=== PATIENT | male | born 1950 | race Caucasian/White ===

== ENCOUNTER 2016-06-06 14:14 | Inpatient (IN) | payer OTHER ==
[~2016-06-06] VITALS: Ht 167.6 cm; Wt 95.3 kg
[2016-06-10] MEDS ORDERED: AMLO5TAB2 PO (11:16)
[2016-06-10] MEDS ORDERED: FLINT2 CHEW (11:17)
[2016-06-10] MEDS ORDERED: SYMB80AE INH (12:46)
[2016-06-10] MEDS ORDERED: ALBU6.7H INH (12:46)
[2016-06-11] MEDS ORDERED: POVIDONE IODINE 5% (ANTISEPSIS KIT) 4 APPLICATIONS EACH NARE PRN (09:15)
[2016-06-11] MEDS ORDERED: LACTATED RINGER'S 1000 ML IV PRN (09:15)
[2016-06-11] MEDS ORDERED: SODIUM CHLORID 0.9% 500 ML IV PRN (09:15)
[2016-06-11] MEDS ORDERED: EXPAREL PERI-ARTICULAR INJECTION (TOTAL VOL. 60 ML) P-ARTICULR SCH ×2 (09:15)
[2016-06-11] MEDS ORDERED: POVIDONE IODINE 7.5% SCRUB 118 ML BOTTLE TOPICAL SCH (09:15)
[2016-06-11] MEDS ORDERED: METOPROLOL TARTRATE 25 MG TAB PO PRN (09:15)
[2016-06-11] MEDS ORDERED: CHLORHEXIDINE GLUCONATE 2 % 1 PACK (2 CLOTHS) TOPICAL PRN (09:15)
[2016-06-11] MEDS ORDERED: INSULIN HUMAN REGULAR 1,000 UNITS/10 ML VIAL SQ PRN (09:15)
[2016-06-11] MEDS ORDERED: SODIUM CHLORIDE 0.9% IV SCH (09:15)
[2016-06-11] MEDS ORDERED: TRANEXAMIC ACID IV SCH (09:15)
[2016-06-11] MEDS ORDERED: VANCOMYCIN 1000 MG/NS 250 ML (for <70 kg) IV SCH ×2 (09:15)
[2016-06-11 09:16] VITALS: BP 137/85; PULSE 89; RESP 20; TEMP 98; O2SAT 93
[2016-06-11 10:34] LABS: BACTERIA, URINE RARE /hpf; BLOOD, URINE MOD (NEG); GLUCOSE,URINE NEG (NEG); KETONE, URINE NEG (NEG); MUCUS URINE FEW /lpf (OCC); NITRITE,URINE NEG (NEG); PH, URINE 5.5 (5.0-8.5); SQUAMOUS EPITHELIAL CELL URINE 1 /hpf (0-5); URINE COLOR YELLOW (YELLW/STRAW)
[2016-06-11 10:35] LABS: COMMENT (UR) CATH-CULTURE IND; CULTURE IF INDICATED CATH CULTURE IND
[2016-06-11] MEDS ORDERED: RESP: ALBUTEROL 2.5 MG/IPRATROPIUM 0.5 MG NEB (PRN) ONE (10:53)
[2016-06-11] MEDS ORDERED: MIDAZOLAM HCL 2 MG/2 ML VIAL ONE (11:17)
[2016-06-11] MEDS ORDERED: FAMOTIDINE 20 MG/2 ML VIAL ONE (11:17)
[2016-06-11] MEDS ORDERED: ceFAZolin INJ 1,000 MG VIAL ONE (11:20)
[2016-06-11] MEDS ORDERED: ceFAZolin 2 GM PREMIX 50 ML IV SCH (11:30)
[2016-06-11] MEDS ORDERED: GENTAMICIN SULFATE 80 MG/2 ML VIAL IRRIGATION ONE (13:15)
[2016-06-11] MEDS ORDERED: PROPOFOL 200 MG/20 ML AMP IV ONE (14:39)
[2016-06-11] MEDS ORDERED: LACTATED RINGER'S 1000 ML INJ 1,000 ML IV ONE (14:40)
[2016-06-11] MEDS ORDERED: ONDANSETRON HCL 4 MG/2 ML VIAL IV PUSH ONE (14:40)
[2016-06-11] MEDS ORDERED: ALBUTEROL SULFATE 90 MCG/ACT HFA 18 GM INHALER INH PRN (14:45)
[2016-06-11] MEDS ORDERED: MISCELLANEOUS PHARMACY INFORMATION XX ONE (14:45)
[2016-06-11] MEDS ORDERED: TEMAZEPAM 15 MG CAP PO PRN (14:45)
[2016-06-11] MEDS ORDERED: ONDANSETRON HCL 4 MG/2 ML VIAL IVP PRN (14:45)
[2016-06-11] MEDS ORDERED: SODIUM CHLORIDE 0.9% FLUSH 5 ML FLUSH IVF PRN (14:45)
[2016-06-11] MEDS ORDERED: MORPHINE SULFATE 8 MG/ML INJ IM PRN (14:45)
[2016-06-11] MEDS ORDERED: ACETAMINOPHEN/HYDROcodone 325 MG/7.5 MG TAB PO PRN (14:45)
[2016-06-11] MEDS ORDERED: MISCELLANEOUS NURSING INFORMATION XX PRN (14:45)
[2016-06-11] MEDS ORDERED: ALUMINUM/MAGNESIUM/SIMETH 30 ML CUP PO PRN (14:45)
--- NOTE | 2016-06-11 14:45 | PD.OP ---
cc: Steve Peguero MD Operative Report Date of Surgery: Jun 11, 2016 Preoperative Diagnosis: Osteoarthritis left hip, severe Postoperative Diagnosis: Same Procedure: Left total hip replacement arthroplasty, posterior exposure Anesthesia: Gen. Surgeon: Steve Peguero Territory Supervisor(s): LAMONT Lockhart Operation and Findings: EBL: 350 cc INDICATION: Patient is a 65-year-old male with severe osteoarthritis of the left hip. There is findings that may be consistent with avascular necrosis. We had planned an elective anterior exposure today but the patient developed a significant rash in the groin suspicious for a fungal infection. He was felt to be a candidate to change to posterior exposure because of concern of infection. He has consented and we will agreed to proceed forward with posterior total hip on the left. NOTE: Cary Lockhart PA-C was present for the entire surgical procedure as my certified surgical tech/first assistant. In my medical opinion her skill and care was necessary for the proper management of this patient. COMPONENTS: COMPANY: [employer] CUP: [place], 56 mm, 100 series STEM: Size 7, high offset, Whitley pressfit HEAD: 36, +5 mm, metal 12/14 taper ALTRX: 36, neutral PROCEDURE: This patient was brought to the operating room and anesthetized in the supine position and positioned on the routine table in the clean air suite. The patient was then rolled to a left side up lateral position and held with a Biomet hip positioner. The hip and leg was scrubbed with alcohol followed by Hibiclens followed by chloro prep and draped sterilely. Fluoroscopy was used during the case for cup and stem positioning also to black belt leg length and offset. A timeout was done and antibiotics were given within a routine time window. A 4 inch incision was made starting along the posterior one third of the greater trochanter. The iliotibial band was opened in line with the incision. The Charnley retractors were positioned. The posterior capsule and external rotators were taken down together in a sleeve. The neck was cut at the right location. The head was removed from the wound. The acetabulum was inspected. Deep retractors were positioned. The acetabulum was deepened down to the floor and started with a proper size reamer and reaming up to 55 mm. This was trialed with the same size trial. The overall fit was satisfactory. The rim was touched with the next size reamer. The cup was placed in approximately 40 of abduction and 30 of forward flexion. The final liner was positioned. Retractors were positioned allowing good visualization of the proximal femur. A box osteotome was utilized followed by a taper pin reamer followed by progressive broaching for the Whitley stem. This was reamed and broached and eventually advanced to a size 7 stem. A trial reduction showed satisfactory stability. Offset was satisfactory. Leg length was reestablished. At 90 of flexion it was stable to 50 of internal rotation. The hip could not be subluxed anteriorly. The final stem was inserted in approximately 15 of anteversion. The final head was impacted. The hip was reduced and stability, offset and leg length was as previously noted. The posterior capsule and external rotators were repaired through bone with interrupted #2 Tycron sutures. The piriformis muscle was repaired with the same. The iliotibial band with interrupted #1 Vicryl sutures. Subcutaneous tissue was approximated with 2-0 Vicryl suture and skin with running intradermal 3-0 Vicryl followed by Steri-Strips and benzoin. A sterile dressing was applied.. The sponge count needle counts and instrument counts were all correct. The patient was awakened and taken to the recovery room in satisfactory condition FINDINGS: There was severe osteoarthritis of the left hip. We needed to position the cup more medial than where the acetabulum had migrated to. We placed the cup slightly higher than normal. The final reconstruction allowed us to lengthen left leg by approximately 8-9 mm. Steve Peguero MD Jun 11, 2016 14:45
[2016-06-11] MEDS ORDERED: XARE10TA PO (14:48)
[2016-06-11] MEDS ORDERED: HYDR-3580 PO (14:48)
[2016-06-11] MEDS ORDERED: Post-op Orders (for Pharmacy) MISC XX ONE (14:55)
[2016-06-11] MEDS ORDERED: MORPHINE SULFATE 4 MG/ML INJ ONE (15:08)
[2016-06-11] MEDS ORDERED: fentaNYL CITRATE 250 MCG/5 ML AMP ONE (15:08)
[2016-06-11] MEDS ORDERED: MORPHINE SULFATE 30 MG/30 ML PCA ONE (15:25)
[2016-06-11] MEDS ORDERED: NALOXONE HCL 0.4 MG/ML AMP IV PRN (15:30)
[2016-06-11] MEDS ORDERED: diphenhydrAMINE HCL 50 MG/ML VIAL IV PUSH PRN (15:30)
[2016-06-11] MEDS ORDERED: diphenhydrAMINE HCL 25 MG CAP PO PRN (15:30)
[2016-06-11] MEDS: LACTATED RINGER'S 1000 ML INJ 1,000 ML IV SCH (15:31)
[2016-06-11] MEDS: MORPHINE SULFATE 30 MG/30 ML PCA IV SCH (15:31)
[2016-06-11] MEDS ORDERED: *RESP: ALBUTEROL 2.5 MG/3 ML NEB (PRN) PERIprocedural Use ONLY NEB ONE (15:45)
[2016-06-11] MEDS ORDERED: *ONDANSETRON 4 MG VIAL PERIprocedural Use ONLY ONE (16:05)
[2016-06-11] MEDS ORDERED: *morphine SULFATE 8 MG/ML PERIprocedure ONLY ONE (16:13)
--- NOTE | 2016-06-11 16:21 | RADRPT ---
EXAM DATE/TIME: 06/11/2016 15:14 [facility] COMPARISON: HIP LEFT (AP & LAT), December 24, 2010, 23:17. INDICATIONS : Post op left hip replacement. MEDICAL HISTORY : Hypertension. Chronic obstructive pulmonary disease. Smoker. SURGICAL HISTORY : Total hip replacement. ENCOUNTER: Initial ACUITY: 1 day PAIN SCORE: Non-responsive. LOCATION: Left hip. FINDINGS: AP and lateral views of the left hip joint fine recent total hip arthroplasty demonstrates acetabular and proximal femur hardware in place. There is adjacent soft tissue air. No unexpected finding is id entified. CONCLUSION: Expected findings following recent left total hip arthroplasty. Mane Gonzalez MD on June 11, 2016 at 16:14 Board Certified Radiologist. This report was verified electronically.
[2016-06-11] MEDS: MAGNESIUM HYDROXIDE SUSP 30 ML CUP PO SCH (21:00)
[2016-06-11] MEDS: SODIUM CHLORIDE 0.9% FLUSH 5 ML FLUSH IVF SCH (21:00)
[2016-06-11] MEDS: SENNOSIDES 8.6 MG TAB PO SCH (21:00)
[2016-06-11] MEDS: BUDESONIDE-FORMOTEROL 80/4.5 MCG INHALER INH SCH (21:00)
[2016-06-11] MEDS ORDERED: PCA - TOTAL MG MORPHINE DELIVERED PER SHIFT SCH (22:00)
[2016-06-11 23:50] VITALS: BP 124/81; PULSE 96; RESP 18; TEMP 97.2; O2SAT 92
[2016-06-12 04:00] VITALS: BP 143/83; PULSE 98; RESP 17; TEMP 98.1; O2SAT 94
[2016-06-12 07:07] LABS: HEMATOCRIT 38.4 % (39.0-51.0); REVIEW FLAG FINAL
[2016-06-12 08:00] VITALS: BP 121/71; PULSE 99; RESP 18; TEMP 98.1; O2SAT 91
[2016-06-12] MEDS: MORPHINE SULFATE 30 MG/30 ML PCA IV SCH (08:25)
[2016-06-12] MEDS: MAGNESIUM HYDROXIDE SUSP 30 ML CUP PO SCH ×2 (09:38→20:56)
[2016-06-12] MEDS: SODIUM CHLORIDE 0.9% FLUSH 5 ML FLUSH IVF SCH ×2 (09:38→20:56)
[2016-06-12] MEDS: amLODIPine BESYLATE 5 MG TAB PO SCH (09:38)
[2016-06-12] MEDS: BUDESONIDE-FORMOTEROL 80/4.5 MCG INHALER INH SCH ×2 (09:39→20:57)
--- NOTE | 2016-06-12 10:25 | HHI.FF ---
Face to Face Verification Diagnosis: (1) Left hip pain (2) Osteoarthritis of left hip (3) Avascular necrosis of bone of left hip Physical Therapy Gait training, Safety evaluation Hip: Total hip, Protocol: Left, Abduction pillow while in bed, Progress to weight bearing Left LE Weight Bearing: WB as tolerated Additional Instructions PT 4-5 days/wk. WBAT Left LE. Posterior DOREEN protocol. Abd pillow when in bed. Walker as needed for gait training. Nursing RN Days per Week: 3 x Week(s): 1 Dressing Changes: Do not change dressing Additional Instructions Vitals assessment, dressing assessment - do not change unless saturated or erythema. I have seen patient Emmanuel Leong on 06/12/16. My clinical findings support the need for the requested home health care services because: Limited ability to care for self High risk of falls I certify that my clinical findings support that this patient is homebound because: Post-op weakness Unsteady gait/balance Maritza Iglesias Jun 12, 2016 10:25
[2016-06-12] MEDS ORDERED: WALKER WHEELS/F1 MIS (10:28)
[2016-06-12] MEDS ORDERED: MISC-163 (10:29)
[2016-06-12 12:00] VITALS: BP 105/62; PULSE 100; RESP 18; TEMP 98.7; O2SAT 91
--- NOTE | 2016-06-12 13:10 | PD.ORT.PN ---
Subjective Subjective Remarks Moderate left hip pain, some thigh aching. No new radiating leg pain. Appetite ok. No new CP or SOB. Many questions about surgery and pathology. Objective Vitals Vital Signs Date Time Temp Pulse Resp B/P Pulse Ox O2 Delivery O2 Flow Rate FiO2 06/12/16 09:41 16 06/12/16 08:25 16 06/12/16 08:00 98.1 99 18 121/71 91 06/12/16 04:00 98.1 98 17 143/83 94 06/12/16 03:29 17 06/11/16 23:50 97.2 96 18 124/81 92 06/11/16 23:30 98.0 95 15 133/74 94 Nasal Cannula 3 06/11/16 20:00 97.7 88 15 128/72 92 Nasal Cannula 3 06/11/16 19:00 90 12 130/75 92 Nasal Cannula 3 06/11/16 18:00 90 14 115/66 93 Nasal Cannula 3 06/11/16 17:00 92 15 166/83 96 Nasal Cannula 3 06/11/16 16:00 82 18 160/84 92 Nasal Cannula 4 06/11/16 15:45 83 18 149/82 92 Nasal Cannula 4 06/11/16 15:31 16 06/11/16 15:30 87 16 159/88 92 Nasal Cannula 4 06/11/16 15:15 87 17 167/95 98 Nasal Cannula 4 06/11/16 15:02 97.9 91 17 170/98 91 Nasal Cannula 4 I/O 06/11/16 06/11/16 06/11/16 06/12/16 06/12/16 06/12/16 07:00 15:00 23:00 07:00 15:00 23:00 Intake Total 2334 ml 998 ml Output Total 850 ml 200 ml Balance 1484 ml 798 ml Intake Oral 240 ml 150 ml IV Total 344 ml 848 ml Other 1750 ml Output Urine Total 500 ml 200 ml Estimated Blood Loss 350 ml Result Diagram: 06/12/16 0604 Objective Remarks Sitting up in chair, NAD VSS LLE Posterior hip dressing c/d/i, no erythema, mild swelling thigh and calf supple, neg homans +motor at, +sens, +nvi Assessment & Plan Ortho Post Op Day #: 1 Problem List: Assessment and Plan pod#1 s/p L DOREEN, posterior approach D/C [employer] - change to po pain meds Xarelto 10mg qd PT - WBAT LLE. Posterior DOREEN. Abd pillow when in bed. Hold dressing changes unless saturated. D/C planning, likely [facility] tomorrow. DME written. Maritza Iglesias Jun 12, 2016 13:10
[2016-06-12] MEDS: RIVAROXABAN 10 MG TAB PO SCH (13:18)
[2016-06-12] MEDS: ACETAMINOPHEN/HYDROcodone 325 MG/7.5 MG TAB PO PRN ×3 (15:13→23:19)
[2016-06-12] MEDS: LACTATED RINGER'S 1000 ML INJ 1,000 ML IV SCH ×2 (15:37→16:13)
[2016-06-12 15:58] VITALS: BP 122/77; PULSE 103; RESP 16; TEMP 97.3; O2SAT 91
[2016-06-12 20:20] VITALS: BP 120/71; PULSE 95; RESP 17; TEMP 98.9; O2SAT 95
[2016-06-12] MEDS: SENNOSIDES 8.6 MG TAB PO SCH (20:54)
[2016-06-13] VITALS: BP 129/76; PULSE 106; RESP 18; TEMP 97.8; O2SAT 92
[2016-06-13] MEDS: ACETAMINOPHEN/HYDROcodone 325 MG/7.5 MG TAB PO PRN ×3 (03:38→12:35)
[2016-06-13 04:00] VITALS: BP 142/78; PULSE 99; RESP 18; TEMP 97.4; O2SAT 92
[2016-06-13] MEDS: LACTATED RINGER'S 1000 ML INJ 1,000 ML IV SCH (04:07)
[2016-06-13 08:00] VITALS: BP 119/77; PULSE 96; RESP 18; TEMP 99.1; O2SAT 93
[2016-06-13] MEDS: amLODIPine BESYLATE 5 MG TAB PO SCH (08:54)
[2016-06-13] MEDS: BUDESONIDE-FORMOTEROL 80/4.5 MCG INHALER INH SCH (08:55)
[2016-06-13] MEDS: SODIUM CHLORIDE 0.9% FLUSH 5 ML FLUSH IVF SCH (09:00)
[2016-06-13] MEDS: MAGNESIUM HYDROXIDE SUSP 30 ML CUP PO SCH (09:00)
--- NOTE | 2016-06-13 09:50 | HHI.DCPOC ---
Discharge Care Plan Diagnosis: (1) Left hip pain (2) Osteoarthritis of left hip (3) Avascular necrosis of bone of left hip Your Health Problems Are: Incision/Drains Swelling Goals to Promote Your Health * To prevent worsening of your condition and complications * To maintain your health at the optimal level Directions to Meet Your Goals Take your medications as prescribed Follow your dietary instruction Follow activity as directed Keep your appointments as scheduled Take your immunizations and boosters as scheduled If your symptoms worsen call your PCP, if no PCP go to Urgent Care Center or Emergency Room Smoking is Dangerous to Your Health. Avoid second hand smoke Call the 24-hour hour crisis hotline for domestic abuse at Maritza Iglesias Jun 13, 2016 09:50
--- NOTE | 2016-06-13 09:51 | HHI.DS ---
Discharge Summary Admission Date Jun 11, 2016 at 08:24 Discharge Date: Jun 13, 2016 Admitting Diagnosis see below Diagnosis: (1) Left hip pain Diagnosis: Principal (2) Osteoarthritis of left hip Diagnosis: Principal (3) Avascular necrosis of bone of left hip Diagnosis: Principal Procedures Left total hip arthroplasty, posterior Brief History This is a 65 year old male patient with a 6-7 year history of left hip and groin pain. He presented to his PCP years ago for treatment. Imaging studies showed arthritis. He was placed on a NSAID medication but this had to be changed multiple times due to problems with gastritis. His function continued to decline as his pain advanced. Recent imaging showed arthritis but also advanced AVN of the hip. He began to require a cane to ambulate. Surgical treatment was eventually recommended and he elected to move forward. He presents for the above procedure. CBC/BMP: 06/12/16 0604 Significant Findings Laboratory Tests Test 06/11/16 06/12/16 10:05 06:04 Urine Occult Blood MOD (NEG) Urine RBC 9 /hpf (0-3) Urine Bacteria RARE /hpf (NONE) Urine Mucus FEW /lpf (OCC) Hemoglobin 12.7 GM/DL (13.0-17.0) Hematocrit 38.4 % (39.0-51.0) PE at Discharge Sitting up in chair, NAD VSS LLE Posterior hip dressing c/d/i, no erythema, mild swelling thigh and calf supple, neg homans +motor at, +sens, +nvi Hospital Course Surgical treatment was performed on the day of admission without complication. He recovered well in PACU and was transferred to the orthopaedic floor. Pain was controlled with IV and oral medications. DVT prophylaxis was initiated postoperative day 1. He was compliant with physical therapy and all posterior total hip precautions. After 2 days he was found to be stable and discharged home with home health care. At that time he was instructed to continue therapy and pursue a high fiber diet. Pt Condition on Discharge: Stable Discharge Disposition: Disch w/ Home Health Serv Discharge Instructions Diet Instructions: As Tolerated, No Restrictions, High Fiber Diet Activities You Can Perform: Weight Bearing as Sheyla Activities to Avoid: Strenuous Activity Additional Activity Instruc.: posterior carolyne precautions New Medications: 3-in-1 Bedside Toilet (3-in-1 Bedside Toilet) 1 Mis Mis 1 EA .ROUTE DIRECTED #1 EA Walker with Front Wheels (Walker with Front Wheels) 1 Mis Mis 1 EA .ROUTE DIRECTED #1 Ref 0 EA Hydrocodone-Acetaminophen (Hydrocodone-Acetaminophen) 7.5-325 mg Tab 1 TAB PO Q4H PRN PAIN LESS THAN 5 ON SCALE #50 TAB Rivaroxaban (Xarelto) 10 Mg Tab 10 MG PO Q24H Prevent Blood Clot #25 TAB Continued Medications: Albuterol 6.7 GM Inh (Proventil Hfa 6.7 GM Inh) 90 Mcg/Act Aer 2 PUFF INH Q4-6H PRN SHORTNESS OF BREATH #1 Ref 0 INHALER Amlodipine (Amlodipine) 5 Mg Tab 5 MG PO DAILY Blood Pressure Management #30 Ref 0 TAB Budesonide-Formoterol Inh (Symbicort Inh) 80-4.5 Mcg/Act Aero 2 PUFF INH Q12HR Asthma Management #1 Ref 0 INHALER Vzfx-Gguzbkdo-Icgtenew (Flintstones Complete) 60 Mg Tab 1 TAB CHEW DAILY Nutritional Supplement #30 Ref 0 TAB Maritza Iglesias Jun 13, 2016 09:51
[2016-06-13] MEDS: RIVAROXABAN 10 MG TAB PO SCH (12:34)
== END 2016-06-13 13:27 | disposition home health service (06) | DRG 470 ==
LOC: HSDI 06-11 08:24 → N06A 06-11 23:54
PROVIDERS: ADMIT Orthopaedic Surgery Orthopaedic Surgery of the Spine; ATTEND Orthopaedic Surgery Orthopaedic Surgery of the Spine
PROC: 0SRB03A Replacement of Left Hip Joint with Ceramic Synthetic Substitute, Uncemented, Open Approach (ICD-10-PCS; principal; 2016-06-11 12:00)
DX: M16.12 Unilateral primary osteoarthritis, left hip (principal); M87.852 Other osteonecrosis, left femur
CPT/HCPCS: 73502; 76000; 81001; 85014; 85018; 86850; 86900; 86901; 86920; 87086; 94150; 94640; 94664; C1776; C9290; J0690; J1580; J2250; J2270; J2405; J3010; J3370; J7050; J7120; J7613

== ENCOUNTER 2017-07-02 09:35 | Emergency (ER) | payer OTHER ==
[~2017-07-02] VITALS: Ht 167.6 cm; Wt 90.9 kg
[~2017-07-02 09:35] MED LIST: ALBU6.7H INH; AMLO5TAB2 PO; FLINT2 CHEW; HYDR-3580 PO; MISC-163; SYMB80AE INH; WALKER WHEELS/F1 MIS; XARE10TA PO
[2017-07-02 09:57] VITALS: BP 189/109; PULSE 74; RESP 20; TEMP 97.8; O2SAT 97
[2017-07-02] MEDS ORDERED: VARE.5 PO (10:07)
--- NOTE | 2017-07-02 10:35 | PD ---
HPI Chief Complaint: Back/ Neck Pain or Injury Time Seen by Provider: 10:06 Travel History International Travel<30 days: No Contact w/Intl Traveler<30days: No Traveled to known affect area: No History of Present Illness HPI 66-year-old male with PMH of HTN, avascular necrosis of the left hip s/p left hip arthroplasty by Dr. Steve Lyn presents to the ED for evaluation of left hip and leg pain. 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 He reports feeling a pop in the area. Pain is constant, shooting, radiates into the left groin and down the left leg to the toes. The patient denies numbness, tingling, weakness, limitations range of motion of the extremity, saddle anesthesia or incontinence. He denies abdominal pain, nausea, vomiting, changes in bowel habits, dysuria. He treated at home with a single dose of ibuprofen with no improvement of his symptoms. PFSH Past Medical History Arthritis: Yes Cancer: No Cardiovascular Problems: No COPD: Yes Diabetes: No Endocrine: No Genitourinary: No Hepatitis: No Hiatal Hernia: No Hypertension: Yes Immune Disorder: No Musculoskeletal: Yes (OA) Neurologic: No Psychiatric: No Reproductive: No Respiratory: Yes (COPD) Thyroid Disease: No Past Surgical History Abdominal Surgery: Yes (KIDNEY SURGERY A CHILD) AICD: No Cardiac Surgery: No Ear Surgery: No Endocrine Surgery: No Eye Surgery: No Genitourinary Surgery: Yes (TEXTICLE GROWTH REMOVED) Joint Replacement: No Oral Surgery: No Pacemaker: No Thoracic Surgery: No Other Surgery: Yes (TOENAIL REMOVED IN OR) Social History Alcohol Use: Yes (SOCIALLY) Tobacco Use: Yes (1 PPD) Substance Use: Yes (MARIJUANA OCC) Allergies-Medications (Allergen,Severity, Reaction): Coded Allergies: penicillin G (Verified Allergy, Mild, SWELLING, 07/02/17) Reported Meds & Prescriptions Reported Meds & Active Scripts Active Flexeril (Cyclobenzaprine HCl) 10 Mg Tab 10 Mg PO TID Ibuprofen 600 Mg Tab 600 Mg PO Q8H PRN Reported Chantix (Varenicline) 0.5 Mg Tab 0.5 Mg PO DAILY Days 1-3 Proventil Hfa 6.7 GM Inh (Albuterol Sulfate) 90 Mcg/Act Aer 2 Puff INH Q4-6H PRN Symbicort Inh (Budesonide/Formoterol Fumarate) 80-4.5 Mcg/Act Aero 2 Puff INH Q12HR Amlodipine (Amlodipine Besylate) 5 Mg Tab 5 Mg PO DAILY Review of Systems Except as stated in HPI: all other systems reviewed are Neg Physical Exam Narrative GENERAL: Well-nourished, well-developed white male no acute distress. SKIN: Focused skin assessment warm/dry. HEAD: Normocephalic. EYES: No scleral icterus. No injection or drainage. NECK: Supple, trachea midline. No JVD or lymphadenopathy. CARDIOVASCULAR: Regular rate and rhythm without murmurs, gallops, or rubs. RESPIRATORY: Breath sounds clear and equal bilaterally. No accessory muscle use. GASTROINTESTINAL: Abdomen soft, non-tender, nondistended. No masses or bulges. Active bowel sounds. MUSCULOSKELETAL: No cyanosis, or edema. FOCUSED LEFT LOWER EXTREMITY EXAM: 2+ DP pulse. Tender to palpation in the left anterior lateral groin and hip. No pain elicited with internal and external rotation. No foreshortening noted. 5/5 strength of dorsiflexion, plantarflexion, knee and hip flexion. Noted to walk with a slight limp. Neurovascularly intact distally. BACK: No obvious deformity. No CVA tenderness. No midline tenderness. No tenderness to palpation of the paraspinal musculature. Data Data Last Documented VS Vital Signs Date Time Temp Pulse Resp B/P (MAP) Pulse Ox O2 Delivery O2 Flow Rate FiO2 07/02/17 12:50 78 20 142/87 (105) 99 07/02/17 09:57 97.8 Orders Orders Hip, Uni(Ap&Lat) W Ap Pelvis (07/02/17 10:31) Ketorolac Inj (Toradol Inj) (07/02/17 10:45) Orphenadrine Inj (Norflex Inj) (07/02/17 10:45) Acetamin-Hydrocod 325-5 Mg (Knifley 5-325 (07/02/17 10:45) Ed Discharge Order (07/02/17 12:28) MDM Medical Decision Making Medical Screen Exam Complete: Yes Emergency Medical Condition: Yes Differential Diagnosis Musculoskeletal pain versus ligamentous injury versus dislocation versus fracture versus other Narrative Course 66-year-old male with PMH of HTN, avascular necrosis of the left hip s/p left hip arthroplasty by Dr. Steve Lyn presents to the ED for evaluation of left hip and leg pain. 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 He reports feeling a pop in the area. No red flag symptoms reported. Vitals reviewed. Musculature of the back. Patient has intact strength in the lower extremities. Patient was administered IM Toradol and Norflex and p.o. Knifley. X-ray reveals intact hardware with no definitive evidence of failure or complication by plain film. Position of the hardware appears stable compared to previous of 06/11/16. On recheck patient reports improvement without resolution of his pain. He is provided a short course of anti-inflammatories and muscle relaxants. He is instructed to follow-up with Dr. Lyn this week. He is stable and discharged home. Diagnosis Primary Impression: Left hip pain Referrals: Steve Peguero MD Additional Instructions: Rest, hydrate. Return to normal, gentle activity as tolerated. Brief periods of rest a few times a day. Take anti-inflammatories and muscle relaxants as prescribed. Do not drive while taking muscle relaxants as they may cause drowsiness. Follow-up with Dr. Lyn this week. Return to the ED for worsening symptoms or any urgent or emergent medical condition. Med/Other Pt SpecificInfo: Prescription(s) given Scripts Cyclobenzaprine (Flexeril) 10 Mg Tab 10 MG PO TID for Muscle Spasm, #12 TAB 0 Refills Prov: Noé Roman MD 07/02/17 Ibuprofen (Ibuprofen) 600 Mg Tab 600 MG PO Q8H Y for PAIN, #12 TAB 0 Refills Prov: Noé Roman MD 07/02/17 Disposition: 01 DISCHARGE HOME Condition: Stable Anais Taylor July 02, 2017 10:35
[2017-07-02] MEDS ORDERED: ACETAMINOPHEN/HYDROcodone 325 MG/5 MG TAB PO ONE (10:45)
[2017-07-02] MEDS ORDERED: ORPHENADRINE INJ 60 MG/2 ML AMP IM ONE (10:45)
[2017-07-02] MEDS ORDERED: KETOROLAC TROMETHAMINE 30 MG/ML (IVP) VIAL IV PUSH ONE (10:45)
--- NOTE | 2017-07-02 12:16 | RADRPT ---
EXAM DATE/TIME: 07/02/2017 11:15 [facility] COMPARISON: HIP LEFT (AP&LAT 2/3VWS) WO AP PELVIS, June 11, 2016, 15:14. INDICATIONS : Severe left hip pain, prior total hip x1 yr ago. MEDICAL HISTORY : Osteoarthritis. SURGICAL HISTORY : Total left hip ENCOUNTER: Initial ACUITY: 2 days PAIN SCORE: 10/10 LOCATION: Left pelvis FINDINGS: The patient is post left hip arthroplasty. Orthopedic hardware appears intact. Bony mineralization of the pelvis is within normal limits There are osteoarthritic changes within the right hip. There degenerative changes within the lumbar spine. CONCLUSION: The patient is post left hip arthroplasty. The hardware appears grossly intact. A.c. no definite evid ence of failure or complication by plain film. Position of the arthroplasty hardware appears stable c ompared to previous dated 06/11/16. Deion Daniels MD on July 02, 2017 at 12:11 Board Certified Radiologist. This report was verified electronically.
[2017-07-02] MEDS ORDERED: IBUP-232 PO (12:29)
[2017-07-02] MEDS ORDERED: CYCL10TA PO (12:29)
[2017-07-02 12:50] VITALS: BP 142/87
== END 2017-07-02 12:52 | disposition home or self-care (01) ==
LOC: NEPD 09:35
DX: M25.552 Pain in left hip (principal); I10 Essential (primary) hypertension; J44.9 Chronic obstructive pulmonary disease, unspecified; M19.90 Unspecified osteoarthritis, unspecified site; F17.210 Nicotine dependence, cigarettes, uncomplicated; Z88.0 Allergy status to penicillin; Z79.899 Other long term (current) drug therapy; Z98.890 Other specified postprocedural states
CPT/HCPCS: 73502; 96372; 96374; 99284; J1885; J2360